=== PATIENT | male | born 1945 | race African-American/Black ===

== ENCOUNTER → 2016-05-01 | Outpatient (CLI) | payer MEDICARE, OTHER ==
[~2016-05-01] MED LIST: ASPI81TA82 PO; DICY1TAB26 PO; METO50TA PO; ROSU20 PO; TAB-TAB PO; ZOFR4TAB3 SL
== END ==
LOC: PLAB 09:15
PROVIDERS: ATTEND Family Medicine
DX: Z12.5 Encounter for screening for malignant neoplasm of prostate (principal)
CPT/HCPCS: 36415; G0103